=== PATIENT | female | born 1980 | race Caucasian/White ===

== ENCOUNTER 2023-06-17 10:42 | Outpatient (CLI) | payer OTHER, SELFPAY ==
[~2023-06-17] VITALS: Ht 157.5 cm; Wt 120.5 kg
[~2023-06-17 10:42] MED LIST: CYAN1000VL SQ; D3 U1000 PO; FLUTISP; HYDR12CA PO; LISI5TAB11 PO; OMEP40CA5 PO; POTA-298 PO
[2023-06-17 10:50] VITALS: BP 158/75; O2SAT 100
[2023-06-17] MEDS ORDERED: NS 250 ML IV ONE (10:50)
[2023-06-17] MEDS: diphenhydrAMINE 25MG CAP PO ONE (10:53)
[2023-06-17] MEDS: ACETAMINOPHEN TAB 650MG DOSE (2X325MG) PO ONE (10:53)
[2023-06-17 11:14] VITALS: BP 157/79; TEMP 99.6; O2SAT 100
[2023-06-17 11:30] VITALS: BP 136/80; TEMP 99; O2SAT 99
[2023-06-17 12:30] VITALS: BP 146/70; TEMP 97.4; O2SAT 100
[2023-06-17 12:57] VITALS: BP 153/70; TEMP 98.2; O2SAT 100
[2023-06-17 14:30] VITALS: BP 137/65; TEMP 98.6; O2SAT 100
== END 2023-06-17 14:45 ==
LOC: M INFU 10:42
PROVIDERS: ATTEND Internal Medicine Hematology & Oncology
DX: D50.9 Iron deficiency anemia, unspecified (principal); Z88.0 Allergy status to penicillin; Z88.1 Allergy status to other antibiotic agents; Z88.5 Allergy status to narcotic agent
CPT/HCPCS: 36430; P9016

== ENCOUNTER 2023-07-10 11:18 | Observation (INO) | payer OTHER ==
[~2023-07-10] VITALS: Ht 157.5 cm; Wt 120.5 kg
[~2023-07-10 11:18] MED LIST changes: +ERGO500029 PO
[2023-07-10 12:12] LABS: BASO % 0.4 % (0.0-1.0); EOS # 0.1 10^3/uL (0.0-0.5); EOS % 1.6 % (0.0-3.0); HEMATOCRIT 33.3 % (36.0-47.0); HEMOGLOBIN 9.5 g/dl (12.0-15.5); LYMPH # 1.1 10^3/uL (1.5-5.0); LYMPH % 22.1 % (24.0-44.0); MEAN CORPUSCULAR HEMOGLOBIN 20.5 pg (27.0-33.0); MEAN CORPUSCULAR HGB CONC 28.5 g/dl (32.0-36.5); MEAN CORPUSCULAR VOLUME 71.9 fl (80.0-96.0); MONO # 0.4 10^3/uL (0.0-0.8); MONO % 7.1 % (2.0-8.0); NEUTROPHILS # 3.4 10^3/uL (1.5-8.5); NEUTROPHILS % 68.6 % (36.0-66.0); PLATELET COUNT, AUTOMATED 370 10^3/uL (150-450); RED BLOOD COUNT 4.63 10^6/uL (4.00-5.40); WHITE BLOOD COUNT 4.9 10^3/uL (4.0-10.0)
[2023-07-10 12:39] LABS: THYROID STIMULATING HORMONE 1.859 uIU/ML (0.55-4.78)
[2023-07-10 12:40] LABS: FREE T4 0.95 NG/DL (0.89-1.76)
[2023-07-10 12:51] LABS: ALBUMIN 3.5 G/DL (3.2-5.2); ALKALINE PHOSPHATASE 81 U/L (46-116); ALT/SGPT 15 U/L (7.0-40); AST/SGOT 36 U/L (<34); BILIRUBIN,DIRECT 0.2 MG/DL (<0.4); BILIRUBIN,TOTAL 0.9 MG/DL (0.3-1.2); BLOOD UREA NITROGEN 8 MG/DL (9-23); CALCIUM LEVEL 8.8 MG/DL (8.5-10.1); CARBON DIOXIDE LEVEL 28 MMOL/L (20-31); CHLORIDE LEVEL 105 MMOL/L (98-107); CK-MB VALUE MASS < 1.0 NG/ML (<3.6); CPK CREATINE PHOSPHOKINASE 81 U/L (34-145); CREATININE FOR GFR 0.46 MG/DL (0.55-1.30); GLOMERULAR FILTRATION RATE > 60.0 (>58); GLUCOSE, FASTING 100 MG/DL (60-100); LIPASE 23 U/L (12-53); MB/CK RELATIVE INDEX 1.23 (< OR =4); POTASSIUM SERUM 4.5 MMOL/L (3.5-5.1); SODIUM LEVEL 139 MMOL/L (136-145); TOTAL PROTEIN 6.9 G/DL (5.7-8.2)
[2023-07-10] MEDS: NS 500 ML IV ONE (12:54)
[2023-07-10 13:15] LABS: RSV AMPLIFICATION NEGATIVE (NEGATIVE)
[2023-07-10] MEDS ORDERED: ISOVUE-370 76% 100ML VIAL As Ordered ONE (13:20)
[2023-07-10 13:36] LABS: CK-MB VALUE MASS < 1.0 NG/ML (<3.6)
[2023-07-10 13:37] LABS: CPK CREATINE PHOSPHOKINASE 56 U/L (34-145); MB/CK RELATIVE INDEX 1.78 (< OR =4)
[2023-07-10] MEDS: SUCRALFATE SUSP 1GM/10ML UD PO ONE (14:18)
[2023-07-10] MEDS: MAALOX 30 ML SUSP *UDC PO ONE (14:18)
[2023-07-10 16:19] LABS: HEMATOCRIT 29.3 % (36.0-47.0); HEMOGLOBIN 8.5 g/dl (12.0-15.5); MEAN CORPUSCULAR HEMOGLOBIN 20.6 pg (27.0-33.0); MEAN CORPUSCULAR VOLUME 71.1 fl (80.0-96.0); PLATELET COUNT, AUTOMATED 334 10^3/uL (150-450); RED BLOOD COUNT 4.12 10^6/uL (4.00-5.40); WHITE BLOOD COUNT 5.7 10^3/uL (4.0-10.0)
[2023-07-10] MEDS: NITROGLYCERIN 0.4MG SUBL TABLET SL STA (17:23)
[2023-07-10] MEDS: PANTOPRAZOLE 40MG VIAL IV ONE (18:07)
[2023-07-10] MEDS ORDERED: HOME MED LIST COMPLETE! XX SCH (18:45)
[2023-07-10 21:05] VITALS: BP 149/64; TEMP 98.1; O2SAT 100
[2023-07-10] MEDS: HEPARIN SOD (PORCINE) 5000UNITS/ML 1ML VIAL/SYRINGE SC SCH (21:31)
[2023-07-10] MEDS: ACETAMINOPHEN TAB 650MG DOSE (2X325MG) PO PRN (21:31)
[2023-07-10] MEDS: SUCRALFATE SUSP 1GM/10ML UD PO SCH (21:31)
[2023-07-11] VITALS (8 sets, daily range): BP systolic 116–153; BP diastolic 54–88; TEMP 97.9–98.4; O2SAT 97–100
[2023-07-11 06:05] LABS: HEMOGLOBIN 7.8 g/dl (12.0-15.5); MEAN CORPUSCULAR HEMOGLOBIN 20.7 pg (27.0-33.0); MEAN CORPUSCULAR HGB CONC 28.9 g/dl (32.0-36.5); MEAN CORPUSCULAR VOLUME 71.8 fl (80.0-96.0); PLATELET COUNT, AUTOMATED 248 10^3/uL (150-450); RED BLOOD COUNT 3.76 10^6/uL (4.00-5.40); WHITE BLOOD COUNT 3.2 10^3/uL (4.0-10.0)
[2023-07-11 06:31] LABS: BLOOD UREA NITROGEN 7 MG/DL (9-23); CARBON DIOXIDE LEVEL 31 MMOL/L (20-31); CHLORIDE LEVEL 106 MMOL/L (98-107); CREATININE FOR GFR 0.48 MG/DL (0.55-1.30); GLOMERULAR FILTRATION RATE > 60.0 (>58); GLUCOSE, FASTING 87 MG/DL (60-100); POTASSIUM SERUM 3.4 MMOL/L (3.5-5.1); SODIUM LEVEL 139 MMOL/L (136-145)
[2023-07-11 07:57] LABS: IRON (FE) 26 UG/DL (50-170); PERCENT SATURATION 8.2 % (13.2-45.0); TOTAL IRON BINDING CAPACITY 317 UG/DL (250-425)
[2023-07-11 07:59] LABS: FERRITIN 6.6 NG/ML (7.3-270.7); FOLATE 13.9 NG/ML (>5.4)
[2023-07-11 08:00] LABS: VITAMIN B12 LEVEL 233 PG/ML (211-911)
[2023-07-11] MEDS: FLUTICASONE PROP 0.05% NASAL SPRAY 16 GM (FLONASE) SCH (08:13)
[2023-07-11] MEDS: lisinopriL 5 MG TAB PO SCH (08:14)
[2023-07-11] MEDS: POTASSIUM CHLORIDE 10MEQ SR TABLET PO SCH (08:15)
[2023-07-11] MEDS: KCL 10MEQ/100ML SWI (KRUN) 10 MEQ in IV 1 EA IV SCH (08:16)
[2023-07-11] MEDS: PANTOPRAZOLE 40MG VIAL IV SCH (09:35)
[2023-07-11] MEDS: POTASSIUM CHLORIDE 10MEQ SR TABLET PO ONE (09:36)
[2023-07-11] MEDS: HEPARIN SOD (PORCINE) 5000UNITS/ML 1ML VIAL/SYRINGE SC SCH (20:40)
[2023-07-12 05:37] VITALS: BP 119/69; TEMP 98.1; O2SAT 99
[2023-07-12 06:16] LABS: BASO % 0.3 % (0.0-1.0); EOS # 0.1 10^3/uL (0.0-0.5); EOS % 2.6 % (0.0-3.0); HEMATOCRIT 30.8 % (36.0-47.0); HEMOGLOBIN 8.9 g/dl (12.0-15.5); LYMPH % 31.7 % (24.0-44.0); MEAN CORPUSCULAR HEMOGLOBIN 21.4 pg (27.0-33.0); MEAN CORPUSCULAR HGB CONC 28.9 g/dl (32.0-36.5); MONO # 0.3 10^3/uL (0.0-0.8); MONO % 9.5 % (2.0-8.0); NEUTROPHILS # 1.7 10^3/uL (1.5-8.5); NEUTROPHILS % 55.6 % (36.0-66.0); PLATELET COUNT, AUTOMATED 250 10^3/uL (150-450); RED BLOOD COUNT 4.16 10^6/uL (4.00-5.40); WHITE BLOOD COUNT 3.1 10^3/uL (4.0-10.0)
[2023-07-12 06:42] LABS: BLOOD UREA NITROGEN 8 MG/DL (9-23); CARBON DIOXIDE LEVEL 30 MMOL/L (20-31); CHLORIDE LEVEL 108 MMOL/L (98-107); CREATININE FOR GFR 0.51 MG/DL (0.55-1.30); GLOMERULAR FILTRATION RATE > 60.0 (>58); GLUCOSE, FASTING 85 MG/DL (60-100); POTASSIUM SERUM 3.7 MMOL/L (3.5-5.1); SODIUM LEVEL 141 MMOL/L (136-145)
[2023-07-12 14:00] VITALS: BP 138/78; TEMP 97.9; O2SAT 98
[2023-07-12] MEDS: FERRIC CARBOXYMALTOSE INJ 750 MG, VIAL MATE ADAPTER 1 EACH in NS 250 ML IV ONE (18:10)
[2023-07-12 20:28] VITALS: BP 144/80; TEMP 98.8; O2SAT 97
[2023-07-13 05:46] VITALS: BP 122/66; TEMP 98.6; O2SAT 97
[2023-07-13 08:10] VITALS: BP 122/65
[2023-07-13] MEDS ORDERED: PROT1TAB2 PO (11:19)
[2023-07-13] MEDS ORDERED: CARA1TAB6 PO (11:19)
== END 2023-07-13 12:45 | disposition home or self-care (01) ==
LOC: M ED 11:18 → M ED INP 18:44 → M MSPAV 20:51
PROVIDERS: ADMIT Internal Medicine; ATTEND Internal Medicine
DX: R07.9 Chest pain, unspecified (principal); R79.1 Abnormal coagulation profile; K44.9 Diaphragmatic hernia without obstruction or gangrene; K21.9 Gastro-esophageal reflux disease without esophagitis; D50.9 Iron deficiency anemia, unspecified; N93.8 Other specified abnormal uterine and vaginal bleeding; E87.6 Hypokalemia; I10 Essential (primary) hypertension; R06.09 Other forms of dyspnea; E55.9 Vitamin D deficiency, unspecified; E66.01 Morbid (severe) obesity due to excess calories; Z98.84 Bariatric surgery status; Z90.49 Acquired absence of other specified parts of digestive tract; Z98.51 Tubal ligation status; F17.210 Nicotine dependence, cigarettes, uncomplicated; F10.11 Alcohol abuse, in remission; Z83.2 Family history of diseases of the blood and blood-forming organs and certain disorders involving the immune mechanism; Z88.5 Allergy status to narcotic agent; Z88.0 Allergy status to penicillin; Z91.013 Allergy to seafood; Z91.048 Other nonmedicinal substance allergy status; Z79.899 Other long term (current) drug therapy
CPT/HCPCS: 36415; 71045; 71046; 71275; 74174; 78582; 80048; 80076; 82550; 82553; 82607; 82728; 82746; 83550; 83690; 83880; 84439; 84443; 84466; 84484; 85025; 85027; 85379; 86850; 86920; 87631; 93005; 93041; 93306; 93970; 94760; 96361; 96365; 96367; 96372; 96375; 96376; 99285; A9540; A9567; C9113; J1439; P9016; Q9967

== ENCOUNTER 2023-07-23 11:00 | Outpatient (CLI) | payer OTHER ==
[~2023-07-23 11:00] MED LIST changes: +CARA1TAB6 PO; +PROT1TAB2 PO
[2023-07-23 11:05] VITALS: BP 136/80; O2SAT 100
[2023-07-23] MEDS: ACETAMINOPHEN TAB 650MG DOSE (2X325MG) PO ONE (11:29)
[2023-07-23] MEDS: diphenhydrAMINE 25MG CAP PO ONE (11:29)
[2023-07-23] MEDS: IRON SUCROSE 300 MG in NS 250 ML OVER 90 MIN. IV ONE (11:59)
[2023-07-23 13:45] VITALS: BP 125/71; O2SAT 100
== END 2023-07-23 13:45 ==
LOC: M INFU 11:00
PROVIDERS: ATTEND Internal Medicine Hematology & Oncology
DX: D50.9 Iron deficiency anemia, unspecified (principal); Z88.0 Allergy status to penicillin; Z88.5 Allergy status to narcotic agent; Z88.1 Allergy status to other antibiotic agents
CPT/HCPCS: 96365; 96366; J1756

== ENCOUNTER 2023-07-30 10:30 | Outpatient (CLI) | payer OTHER ==
[2023-07-30 10:35] VITALS: BP 140/81; O2SAT 100
[2023-07-30] MEDS: ACETAMINOPHEN TAB 650MG DOSE (2X325MG) PO ONE (10:53)
[2023-07-30] MEDS: diphenhydrAMINE 25MG CAP PO ONE (10:53)
[2023-07-30] MEDS: IRON SUCROSE 300 MG in NS 250 ML OVER 90 MIN. IV ONE (11:26)
[2023-07-30 13:05] VITALS: BP 126/81; O2SAT 100
== END 2023-07-30 13:20 ==
LOC: M INFU 10:30
PROVIDERS: ATTEND Internal Medicine Hematology & Oncology
DX: D50.9 Iron deficiency anemia, unspecified (principal); Z88.0 Allergy status to penicillin; Z88.1 Allergy status to other antibiotic agents; Z88.5 Allergy status to narcotic agent
CPT/HCPCS: 96365; 96366; J1756

== ENCOUNTER 2024-02-03 09:10 | Day surgery (SDC) | payer OTHER ==
[~2024-02-03] VITALS: Ht 157.5 cm; Wt 117.8 kg
[~2024-02-03 09:10] MED LIST changes: +ACET-683 PO; +PANT40TA29 PO; +iron infusions
[2024-02-03] MEDS: NS 1,000 ML IV ONE (09:46)
[2024-02-03] MEDS ORDERED: propofoL 200 MG/20 ML VIAL As Ordered ONE (10:46)
[2024-02-03] MEDS ORDERED: fentaNYL 100 MCG/2 ML INJECTION As Ordered ONE (10:46)
[2024-02-03 12:10] VITALS: BP 140/67; TEMP 96.2; O2SAT 100
== END 2024-02-03 12:21 | disposition home or self-care (01) ==
LOC: M OPP 09:10
PROVIDERS: ATTEND Internal Medicine Gastroenterology
DX: D50.9 Iron deficiency anemia, unspecified (principal); D12.5 Benign neoplasm of sigmoid colon; K64.8 Other hemorrhoids; K64.4 Residual hemorrhoidal skin tags; Z98.0 Intestinal bypass and anastomosis status; K21.9 Gastro-esophageal reflux disease without esophagitis; Z87.19 Personal history of other diseases of the digestive system; Z98.84 Bariatric surgery status; Z90.49 Acquired absence of other specified parts of digestive tract; I10 Essential (primary) hypertension; G47.30 Sleep apnea, unspecified; Z79.899 Other long term (current) drug therapy; F17.210 Nicotine dependence, cigarettes, uncomplicated; Z88.1 Allergy status to other antibiotic agents; Z88.8 Allergy status to other drugs, medicaments and biological substances; Z88.5 Allergy status to narcotic agent; Z91.013 Allergy to seafood; Z91.048 Other nonmedicinal substance allergy status
CPT/HCPCS: 43239; 45385; 88305; J3010

== ENCOUNTER 2025-01-24 16:42 | Emergency (ER) | payer OTHER ==
[~2025-01-24] VITALS: Ht 157.5 cm; Wt 130.1 kg
[~2025-01-24 16:42] MED LIST changes: +HYDR12.510 PO; -HYDR12CA PO
[2025-01-24 16:46] VITALS: BP 173/93; TEMP 98.8; O2SAT 100
== END 2025-01-24 23:12 | disposition left against medical advice (07) ==
LOC: M ED 16:42
DX: Z53.21 Procedure and treatment not carried out due to patient leaving prior to being seen by health care provider (principal)